=== PATIENT | female | born 1985 | race Caucasian/White ===

== ENCOUNTER 2016-04-18 17:44 | Emergency (ER) | payer OTHER ==
[~2016-04-18] VITALS: Wt 113.4 kg
[~2016-04-18 17:44] MED LIST: ALBUTEROL0.09 MG/A2 IH; AMOXICILLIN500 MG PO; ANTIVERT25 MG PO; BACTRIM DS 8001 TA1 PO; FLONASE 0.05% 121 EA NAS; IBU-8800 MG PO; KEFLEX500 MG PO; MOTRIN800 MG PO; NAPROSYN500 MG PO; NKHM; NORCO 325 MG-51 TAB PO; NORFLEX100 MG PO; PREDNICOT20 MG PO; PRENATAL1 TA1; ULTRAM50 MG PO; VIBRAMYCIN100 MG PO; ZOFRAN ODT4 MG SL; ZOFRAN4 MG PO; ZYRTEC10 MG PO
[2016-04-18 17:46] VITALS: BP 162/98
[2016-04-18 18:06] LABS: BASO # 0.1 10*3/uL (0.0-0.1); BASO % 0.3 % (0.0-1.0); EOS # 0.1 10*3/uL (0.0-0.4); EOS % 0.3 % (1.0-4.0); HEMATOCRIT 45.4 % (37.0-47.0); HEMOGLOBIN 14.9 g/dl (12.0-16.0); IG # 0.1 10*3/uL (0.0-0.1); LYMPH % 11.3 % (27.0-41.0); MEAN CELL VOLUME 88.5 fl (81.0-99.0); MEAN CORPUSCULAR HGB CONC 32.8 g/dl (33.0-37.0); MEAN PLATELET VOLUME 12.1 fl (9.6-12.3); MONO # 0.9 10*3/uL (0.1-1.0); NEUT # 14.8 10*3/uL (2.3-7.9); NEUT % 82.5 % (47.0-73.0); PLATELET COUNT AUTOMATED 221 10*3/uL (130-400); RED BLOOD COUNT 5.13 10*6/uL (4.10-5.10); RED CELL DISTRI WIDTH 13.2 % (0-14.5); WHITE BLOOD COUNT 17.9 10*3/uL (4.8-10.8)
[2016-04-18 18:21] LABS: ALBUMIN 3.6 gm/dl (3.1-4.5); ALKALINE PHOSPHATASE 68 U/L (45-117); BILIRUBIN, TOTAL 0.3 mg/dl (0.2-1.0); BUN 6 mg/dl (7-24); CARBON DIOXIDE 29 mmol/L (21-32); CHLORIDE 107 mmol/L (98-107); EST GLOM FILT AFRICAN AMERICAN > 60 ml/min; GLUCOSE 101 mg/dL (65-99); POTASSIUM 4.3 mmol/L (3.5-5.1); SGOT/AST 10 IU/L (3-35); SGPT/ALT 25 U/L (12-78); SODIUM 142 mmol/L (136-145); TOTAL PROTEIN 7.6 gm/dL (6.4-8.2)
[2016-04-18 18:57] LABS: BILIRUBIN 1+ (NEGATIVE); BLOOD 1+ (NEGATIVE); CLARITY SL CLOUDY (CLEAR); COLOR YELLOW (YELLOW); GLUCOSE NEGATIVE (NEGATIVE); KETONE TRACE (NEGATIVE); LEUKO ESTERASE NEGATIVE (NEGATIVE); NITRITE NEGATIVE (NEGATIVE); PROTEIN 1+ (NEGATIVE); SPECIFIC GRAVITY >= 1.030 (1.005-1.030); UROBILINOGEN 0.2 E.U./dl (0.2-1.0)
[2016-04-18 19:07] LABS: BACTERIA 4+; EPITHELIAL CELLS 20-25; URINE REFLEX COMMENT YES (NO)
[2016-04-18] MEDS ORDERED: PRENATAL1 TA3 PO (19:16)
[2016-04-18] MEDS ORDERED: DICLEGIS DR 101 EACH PO (19:19)
[2016-04-22] MEDS ORDERED: BACTRIM DS 8001 TA1 PO (22:34)
== END 2016-04-18 20:37 | disposition home or self-care (01) ==
LOC: ED 17:44
PROVIDERS: Nurse Practitioner Family
DX: K80.20 Calculus of gallbladder without cholecystitis without obstruction (principal); D72.829 Elevated white blood cell count, unspecified; R03.0 Elevated blood-pressure reading, without diagnosis of hypertension; F17.200 Nicotine dependence, unspecified, uncomplicated; Z32.01 Encounter for pregnancy test, result positive

== ENCOUNTER → 2020-08-04 | Outpatient (CLI) | payer OTHER ==
[~2020-08-04] MED LIST changes: +DICLEGIS DR 101 EACH PO; +PRENATAL1 TA3 PO
[2020-08-04 10:40] LABS: HEMATOCRIT 46.8 % (37.0-47.0); MEAN CELL VOLUME 85.2 fl (81.0-99.0); MEAN CORPUSCULAR HGB 26.8 pg (27.0-31.0); MEAN CORPUSCULAR HGB CONC 31.4 g/dl (33.0-37.0); MEAN PLATELET VOLUME 11.1 fl (9.6-12.3); RED BLOOD COUNT 5.49 10*6/uL (4.10-5.10); RED CELL DISTRI WIDTH 13.3 % (0-14.5); WHITE BLOOD COUNT 15.6 10*3/uL (4.8-10.8)
[2020-08-04 10:59] LABS: ALBUMIN 3.2 gm/dl (3.1-4.5); BUN 11 mg/dl (7-24); CHLORIDE 108 mmol/L (98-107); CHOLESTEROL 185 mg/dL (<200); CREATININE 0.76 mg/dL (0.55-1.02); LDL CHOLESTEROL 108 mg/dL (9-159); POTASSIUM 4.2 mmol/L (3.5-5.1); SGOT/AST 7 IU/L (3-35); SGPT/ALT 32 U/L (12-78); SODIUM 140 mmol/L (136-145); TOTAL PROTEIN 7.2 gm/dL (6.4-8.2); TRIGLYCERIDES 163 mg/dl (<150)
[2020-08-04 11:07] LABS: ALKALINE PHOSPHATASE 98 U/L (45-117)
== END | disposition home or self-care (01) ==
LOC: LAB 10:19
PROVIDERS: Nurse Practitioner Family; ATTEND Family Medicine
DX: Z13.220 Encounter for screening for lipoid disorders (principal); E66.9 Obesity, unspecified; R53.83 Other fatigue

== ENCOUNTER → 2021-07-26 | Outpatient (CLI) | payer OTHER ==
[2021-08-01 12:08] LABS: ALDOSTERONE, SERUM 2.7 ng/dL (0.0-30.0)
[2021-08-03 19:06] LABS: ALDOSTERONE/RENIN RATIO 1.4 (0.0-30.0); RENIN ACTIVITY (PLASMA) 1.939 ng/mL/hr (0.167-5.380)
== END | disposition home or self-care (01) ==
LOC: RESCLI 01:07
PROVIDERS: Internal Medicine; ATTEND Internal Medicine
DX: R10.11 Right upper quadrant pain (principal); F41.1 Generalized anxiety disorder; F33.1 Major depressive disorder, recurrent, moderate; I10 Essential (primary) hypertension; F17.200 Nicotine dependence, unspecified, uncomplicated; Z79.899 Other long term (current) drug therapy; Z98.890 Other specified postprocedural states

== ENCOUNTER → 2021-08-23 | Outpatient (CLI) | payer OTHER | END | disposition home or self-care (01) | LOC: RESCLI 01:41 | PROVIDERS: ATTEND Internal Medicine | DX: I10 Essential (primary) hypertension (principal); F33.2 Major depressive disorder, recurrent severe without psychotic features; F41.1 Generalized anxiety disorder; Z72.0 Tobacco use; R10.11 Right upper quadrant pain; Z79.899 Other long term (current) drug therapy ==

== ENCOUNTER → 2021-09-06 | Outpatient (CLI) | payer OTHER | END | disposition home or self-care (01) | LOC: US 07:30 | PROVIDERS: ATTEND Student in an Organized Health Care Education/Training Program | DX: K76.0 Fatty (change of) liver, not elsewhere classified (principal); K80.20 Calculus of gallbladder without cholecystitis without obstruction ==

== ENCOUNTER → 2022-05-23 | Outpatient (CLI) | payer OTHER | END | disposition home or self-care (01) | LOC: MRI 05-16 08:00 | PROVIDERS: ATTEND Family Medicine | DX: K80.20 Calculus of gallbladder without cholecystitis without obstruction (principal); K76.0 Fatty (change of) liver, not elsewhere classified ==

== ENCOUNTER → 2022-06-16 | Day surgery (SDC) | payer OTHER ==
[2022-06-12 13:48] VITALS: BP 169/114
[~2022-06-16] VITALS: Ht 172.7 cm; Wt 104.3 kg
[2022-06-16] VITALS (8 sets, daily range): BP systolic 135–148; BP diastolic 75–113
[~2022-06-16] MED LIST changes: +AMLODIPINE BESYL5 MG PO; +ATIVAN0.5 MG PO; +BUPROPION XL300 MG PO; +COLACE100 MG PO; +HYDROCODONE-AC1 EAC1 PO; +LEXAPRO20 MG PO; +LISINOPRIL20 MG PO; +ONDANSETRON HYDR4 M1 PO
== END | disposition home or self-care (01) ==
LOC: SDC 06-12 13:15
PROVIDERS: ATTEND Surgery
DX: K80.10 Calculus of gallbladder with chronic cholecystitis without obstruction (principal); I10 Essential (primary) hypertension; F41.9 Anxiety disorder, unspecified; F32.A Depression, unspecified; F17.290 Nicotine dependence, other tobacco product, uncomplicated; Z79.899 Other long term (current) drug therapy; Z90.89 Acquired absence of other organs

== ENCOUNTER → 2024-10-07 | Outpatient (CLI) | payer OTHER | END | disposition home or self-care (01) | LOC: RESCLI 15:02 | PROVIDERS: ATTEND Internal Medicine | DX: R07.89 Other chest pain (principal); R00.2 Palpitations; F41.1 Generalized anxiety disorder; I10 Essential (primary) hypertension; E78.5 Hyperlipidemia, unspecified; Z79.899 Other long term (current) drug therapy; Z98.890 Other specified postprocedural states ==